=== PATIENT | female | born 1945 | race Caucasian/White ===

== ENCOUNTER 2019-11-26 11:46 | Outpatient (CLI) | payer MEDICARE, OTHER, SELFPAY ==
--- NOTE | ~2019-11-26 | MM_ITS ---
EXAMINATION: MM diagnostic [facility] BI w [facility] HISTORY: History of bilateral breast cancer TECHNIQUE: ML, MLO and cc 3-D tomosynthesis images of both breasts were performed and synthetic 2-D i mages were generated. CAD analysis was submitted and interpreted. COMPARISON: 08/05/2018 diagnostic right digital mammogram and limited right breast ultrasound 07/06/2018bilateral digital screening mammogram BREAST PARENCHYMAL COMPOSITION: The breasts are heterogeneously dense, which may obscure small masses . FINDINGS: There is postoperative change of both breasts including clips in the upper outer quadrants. There is a Port-A-Cath on the left. There is bilateral skin thickening; history of radiation treatme nt. No suspicious mass or architectural distortion is noted otherwise. IMPRESSION: 1. Status post bilateral partial mastectomy and radiation treatment for breast cancer 2. Routine mammographic screening and any additional imaging as clinically appropriate for bilateral breast cancer is recommended. BI-RADS Category 2: Benign finding(s). Reviewed, dictated and finalized at location A. CCO SWEEPER IMPRESSION: 1. Status post bilateral partial mastectomy and radiation treatment for breast cancer 2. Routine mammographic screening and any additional imaging as clinically appr opriate for bilateral breast cancer is recommended. BI-RADS Category 2: Benign finding(s).
== END 2019-11-26 11:47 | disposition home or self-care (01) ==
LOC: ANHIMG 11:48
PROVIDERS: PCP Internal Medicine; Visit Provider Internal Medicine Hematology & Oncology
DX: C50.411 Malignant neoplasm of upper-outer quadrant of right female breast (principal); Z17.0 Estrogen receptor positive status [ER+]; Z90.13 Acquired absence of bilateral breasts and nipples; Z92.3 Personal history of irradiation
CPT/HCPCS: 77062; 77066; G0279

== ENCOUNTER 2020-06-06 10:59 | Outpatient (CLI) | payer MEDICARE, OTHER, SELFPAY ==
--- NOTE | ~2020-06-06 | MM_ITS ---
EXAMINATION: MM diagnostic [facility] BI w [facility] HISTORY: Bilateral breast cancer, 2018, 2019 TECHNIQUE: ML, MLO and craniocaudal 3-D tomosynthesis images of both breasts were performed and synth etic 2-D images were generated. CAD analysis was submitted and interpreted. COMPARISON: 11/26/2019 bilateral diagnostic digital mammogram BREAST PARENCHYMAL COMPOSITION: The breasts are heterogeneously dense, which may obscure small masses . FINDINGS: Postsurgical changes from partial mastectomy are noted in the upper outer quadrant of each breast. The postoperative changes appear stable. There is a left-sided Port-A-Cath. No interval suspicious mass or new architectural distortion or any malignant calcification or retract ion is noted. Symmetric mild skin thickening is noted at both breasts. IMPRESSION: 1. Status post bilateral upper outer quadrant partial mastectomies for breast cancer 2. No interval new mammographic evidence of malignancy since 11/26/2019 3. At minimum, annual mammographic screening is recommended. BI-RADS Category 2: Benign finding(s). Reviewed, dictated and finalized at location A. IMPRESSION: 1. Status post bilateral upper outer quadrant partial mastectomies for breast c ancer 2. No interval new mammographic evidence of malignancy since 11/26/2019 3. At minimum, annual mammographic screening is recommended. BI-RADS Category 2: Benign finding(s).
== END 2020-06-06 11:00 | disposition home or self-care (01) ==
LOC: ANHIMG 11:00
PROVIDERS: PCP Internal Medicine; Visit Provider Internal Medicine Hematology & Oncology
DX: C50.411 Malignant neoplasm of upper-outer quadrant of right female breast (principal); Z17.0 Estrogen receptor positive status [ER+]
CPT/HCPCS: 77062; 77066; G0279

== ENCOUNTER → 2020-12-12 00:38 | Outpatient (CLI) | payer MEDICARE, OTHER, SELFPAY ==
[2020-12-12 17:47] LABS: SARS-CoV-2 RNA PCR Negative
== END ==
PROVIDERS: PCP Internal Medicine; Visit Provider Surgery
DX: Z01.812 Encounter for preprocedural laboratory examination (principal); Z20.822 Contact with and (suspected) exposure to COVID-19
CPT/HCPCS: C9803; U0003; U0005

== ENCOUNTER 2020-12-15 00:54 | Day surgery (SDC) | payer MEDICARE, OTHER, SELFPAY ==
[2020-12-10 09:12] VITALS: BMI 27.4
--- NOTE | 2020-12-15 07:29 | PM.HPGS ---
History of Present Illness History of Present Illness Chief complaint: Carcinoma Upper Outer Quad. 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 She presents this time to have her Port-A-Cath removed. Review of Systems Constitutional: Constitutional: Reports no additional constitutional complaints, Reports fatigue and Denies malaise Eyes: Eyes: Denies change in vision and Denies loss of vision ENT: Reports Normal hearing present, Denies change in voice, Denies dizziness, Denies hoarseness and Denies sore throat Cardiovascular: Cardiovascular: Denies chest pain, Denies leg edema and Denies dyspnea Respiratory: Respiratory: Denies cough, Denies dyspnea and Denies wheezing Gastrointestinal: Gastrointestinal: Denies hematochezia, Denies change in bowel habits and Denies heartburn Genitourinary: Genitourinary: Denies urinary frequency and Denies urinary incontinence Neurologic: Reports Normal hearing present, Denies confusion, Denies dizziness, Denies loss of vision, Denies memory loss and Denies seizure-like activity Psychiatric: Psychiatric: Denies confusion, Denies depression and Denies memory loss Endocrine: Endocrine: Denies cold intolerance and Reports fatigue Hematologic/Lymphatic: Hematologic/Lymphatic: Denies easy bleeding and Denies easy bruising Comments: States she has received 1 COVID immunization shot approximately 1 week ago. Allergic/Immunologic: Allergic/Immunologic: Denies wheezing PMF Family History Family History Mother Acute myocardial infarction, Onset Age: 88 Patient's mother is Father Family history of malignant neoplasm, Onset Age: 49 Social History Social History Smoking packs per day: 0.25 Smoking cigarettes per day: 5.0 Years smoked: 20 Smoking pack-years: 5.00 Smoking status: Former smoker Tobacco type: cigarettes Second hand tobacco smoke exposure: No Smoking end date: 10/17/01 Alcohol intake: current Living arrangements: alone Spiritual care concerns: No Meds Home Medications and Allergies Home Medications Medication Instructions Recorded Confirmed Type anastrozole 1 mg PO DAILY 08/01/19 12/15/20 History cetirizine 10 mg PO PRN PRN 08/01/19 12/15/20 History cholecalciferol (vitamin D3) 1,000 unit PO DAILY 08/23/19 12/15/20 History [Vitamin D3] vitamins A,C,Q-chkd-wzjrxj 1 cap PO DAILY 12/10/20 12/15/20 History [PreserVision AREDS] Allergies Allergy/AdvReac Type Severity Reaction Status Date / Time metronidazole Allergy Unknown Other Verified 12/15/20 08:45 vancomycin Allergy Unknown Swelling Verified 12/15/20 08:45 Exam Const: General: cooperative, healthy appearing, no acute distress, well developed and alert; No confusion Nutritional Appearance: well nourished Orientation/consciousness: patient oriented x3 and No confusion Limitations: no limitations HENMT: Head: normal to inspection, normocephalic and atraumatic Ears: hearing grossly normal bilaterally General nose exam: Normal external nose present Face and sinus: no edema Mouth: Yes Normal oral and palatal mucosa present and Yes lip normal Throat: posterior oropharynx normal Eyes: General: appearance normal, both eyes and all related structures Sclera: sclerae normal Pupils: Equal, round and reactive pupils present EOM: EOMs intact bilaterally Neck: Neck: normal visual inspection, no lymphadenopathy, trachea midline and supple Chest: Chest palpation & inspection: other (Palpable catheter extending from the port to the subclavicular area on Lt.) Breast/axilla inspection: normal inspection of the breasts Other: Small scar on the upper anterior left chest (overlying julieth
[2020-12-15 08:56] VITALS: BP 132/83; PULSE 69; RESP 16; TEMP 37.3; O2SAT 100
--- NOTE | 2020-12-15 09:48 | WPDHPUPDATE1 ---
History and Physical Update Update Date/Time: 12/15/20 09:48 History and Physical has been reviewed, including an updated exam of the patient. There are NO changes in the patient's condition. Risks, benefits, and alternatives of removal of a Port-A-Cath have been discussed and questions answered. Patient agrees to proceed with procedure.
[2020-12-15 09:56] VITALS: BP 146/72; PULSE 59; RESP 16; O2SAT 99
[2020-12-15 10:06] VITALS: BP 139/76; PULSE 62; RESP 16; O2SAT 98
[2020-12-15] MEDS: LIDO 2%/EPINEPHRINE 1:100,000 20 ML VIAL INFILTRATE (10:08)
[2020-12-15 10:16] VITALS: BP 128/74; PULSE 66; RESP 16; O2SAT 97
[2020-12-15 10:26] VITALS: BP 122/66; PULSE 66; RESP 16; O2SAT 96
--- NOTE | 2020-12-15 10:39 | P.OP_ITS ---
Procedure Note - Detailed Date of procedure: 12/15/20 Pre-op diagnosis: Carcinoma Upper Outer Quad. Right Breast Indwelling Port-A-Cath Post-op diagnosis: same Procedure performed: Removal of Port-A-Cath Description of procedure: Prior to the procedure the patient was seen in the holding area and the area of proposed surgery was marked. All questions were answered and the patient wished to proceed with removal of the Port-A-Cath. The patient was brought to the operating room and placed supine. The entire left neck, chest, and shoulder were prepped with chlorhexidine. The area was draped off. Time-out was performed confirming patient and site of surgery. Following this a 15 blade knife was used to make incision directly on the scar from the previous port placement. This was done after infiltrating local anesthetic into the area of and inferior to the scar on the left anterior chest and into the area of the pocket containing the port to some degree using 2% xylocaine with epinephrine. Following this we carefully dissected down to the junction of the port and catheter. Bovie cautery with needle-tip was used to carefully incise the capsule around the port and free up the scar tissue around the junction of the port and catheter. One silk suture that was holding the port to the underlying fascia was carefully excised with a 15 blade knife and mosquito hemostats. Following this the port was brought up and out of the pocket. Then watching the patient's respirations I carefully removed the catheter in one smooth pull while applying pressure in the Lt. subclavicular area at the catheter vein exit site as the patient was breathing out. Pressure was held for 1 minute in the subclavicular level. I used Bovie cautery on some the subcutaneous tissues as we waited for good clotting. Again hemostasis was checked in the wound using Bovie cautery for superficial hemostasis in the subcutaneous tissues. Following this closure was obtained with 2 layers. I used buried subcutaneous sutures of 3-0 Vicryl in the subcutaneous layer followed by a running subcuticular closure of 4-0 Monocryl on the skin. Patient tolerated the procedure well. Estimated blood loss was 3 cc. Sponge, needle, and instrument counts were correct at the end the procedure and patient was taken to the outpatient recovery area in good condition. Anesthesia: local ( 2% xylocaine with epinephrine) Surgeon: Sudheer Reynolds MD House Worker General: none Estimated blood loss (mL): 3 Drains: No Packing: No Pathology: none sent Complications: No immediate complications Condition: stable Disposition: other ( outpatient recovery area) Findings: unremarkable port and catheter that were intact.
[2020-12-15 11:00] VITALS: BP 140/65; PULSE 59; RESP 16
== END 2020-12-15 11:05 | disposition home or self-care (01) ==
PROVIDERS: PCP Internal Medicine; Visit Provider Surgery
PROC: (CPT 36589; principal; 2020-12-15 09:30)
DX: Z45.2 Encounter for adjustment and management of vascular access device (principal); Z85.3 Personal history of malignant neoplasm of breast; Z87.891 Personal history of nicotine dependence; Z79.811 Long term (current) use of aromatase inhibitors
CPT/HCPCS: 36590

== ENCOUNTER 2021-06-08 11:09 | Outpatient (CLI) | payer MEDICARE, OTHER, SELFPAY ==
--- NOTE | ~2021-06-08 | MM_ITS ---
EXAMINATION: MM diagnostic [facility] BI w [facility] HISTORY: History of bilateral breast cancer TECHNIQUE: Craniocaudal, mediolateral, and mediolateral oblique 3-D tomosynthesis images of the breas ts were performed and synthetic 2-D images were generated. CAD analysis was submitted and interpreted . COMPARISON: 06/06/2020, 11/26/2019, 08/05/2018, 07/14/2018 BREAST PARENCHYMAL COMPOSITION: The breasts are heterogeneously dense, which may obscure small masses . FINDINGS: There is no evidence of suspicious mass, calcification, or architectural distortion in eith er breast to suggest malignancy. There has been no suspicious interval change. Stable lumpectomy maria del carmen nges are noted in the upper outer quadrants of the breasts. A left-sided Port-A-Cath has been. IMPRESSION: 1. No mammographic evidence of malignancy. 2. Recommend routine screening mammography in one year. BI-RADS Category 2: Benign finding(s). Reviewed, dictated and finalized at location A.
== END 2021-06-08 11:10 | disposition home or self-care (01) ==
LOC: ANHIMG 11:10
PROVIDERS: PCP Internal Medicine; Visit Provider Internal Medicine Hematology & Oncology
DX: Z85.3 Personal history of malignant neoplasm of breast (principal)
CPT/HCPCS: 77062; 77066; G0279

== ENCOUNTER 2022-01-28 08:00 | Outpatient (CLI) | payer MEDICARE, SELFPAY ==
--- NOTE | ~2022-01-28 | DEXA_ITS ---
Bone Density Report Name: RUFINA CRUZ Age: 76 Sex: Female Ethnicity: White Date of : 1945 Indication: postmenopausal; screening for osteoporosis; cancer; hysterectomy; Referring Provider: BRITT DUQUE Study: Bone densitometry was performed. Exam Date: January 28, 2022 Accession number: [id number] Bone Density: Region BMD T-score Z-score Classification AP Spine(L1, L2) 1.110 1.2 3.6 Normal Femoral Neck (Left) 0.749 -0.9 1.3 Normal Total Hip (Left) 0.862 -0.7 1.2 Normal Femoral Neck (Right) 0.715 -1.2 1.0 Osteopenia Total Hip (Right) 0.844 -0.8 1.1 Normal Total Hip Mean 0.853 -0.8 1.2 Normal World Health Organization criteria for BMD impression classify patients as: Normal (T-score at or above -1.0), Osteopenia (T-score between -1.0 and -2.5), or Osteoporosis (T-score at or below -2.5). 10-year Fracture Risk(1): Major Osteoporotic Fracture 11% Hip Fracture 2.1% Reported Risk Factors: [place] (), Neck BMD=0.715, BMI=27.9 (1) FRAX(R) Version 3.08. Fracture probability calculated for an untreated patient. Fracture probability may be lower if the patient has received treatment. Previous Exams: Region Exam Age BMD T-score BMD Change BMD Change Date g/cm2 vs Baseline vs Previous AP Spine(L1, L2) 01/28/2022 76 1.110 1.2 0.039(3.7%)# 0.062(5.9%)* 09/29/2019 73 1.048 0.6 -0.023(-2.1%)# -0.023(-2.1%)# 09/20/2011 65 1.071 0.8 Total Hip(Left) 01/28/2022 76 0.862 -0.7 -0.026(-2.9%)# 0.012(1.4%) 09/29/2019 73 0.850 -0.8 -0.037(-4.2%)# -0.037(-4.2%)# 09/20/2011 65 0.888 -0.4 Total Hip(Right) 01/28/2022 76 0.844 -0.8 -0.047(-5.2%)# 0.018(2.2%) 09/29/2019 73 0.826 -1.0 -0.065(-7.3%)# -0.065(-7.3%)# 09/20/2011 65 0.891 -0.4 *Denotes significance at 95% confidence level, LSC for AP Spine = 0.022 g/cm2, LSC for Total Hip = 0.027 g/cm2 # Denotes dissimilar scan types or analysis methods Clinical Information Provided by Patient: Has used the following medications: Vitamin D, Calcium Has the following medical conditions: Cancer, Hysterectomy Patient maximum height was 64 Menopause Age: 54 No regular weight bearing exercise Drinks caffeinated beverages Onset of menses at age 13 Number of children 2 Impression: The patient has low bone mass, based on the Right Femoral Neck T-score. The patient has an estimated ten-year risk of hip fracture of 2.1%
--- NOTE | ~2022-01-28 | DEXA_ITS ---
Bone Density Report Name: RUFINA CRUZ Age: 76 Sex: Female Ethnicity: White Date of : 1945 Indication: UNAPPROVED postmenopausal; screening for osteoporosis; Referring Provider: BRITT DUQUE Study: Bone densitometry was performed. Exam Date: January 28, 2022 Accession number: [id number] Bone Density: Region BMD T-score Z-score Classification AP Spine(L1, L2) 1.110 1.2 3.6 Normal Femoral Neck (Left) 0.749 -0.9 1.3 Normal Total Hip (Left) 0.862 -0.7 1.2 Normal Femoral Neck (Right) 0.715 -1.2 1.0 Osteopenia Total Hip (Right) 0.844 -0.8 1.1 Normal Total Hip Mean 0.853 -0.8 1.2 Normal World Health Organization criteria for BMD impression classify patients as: Normal (T-score at or above -1.0), Osteopenia (T-score between -1.0 and -2.5), or Osteoporosis (T-score at or below -2.5). 10-year Fracture Risk(1): Major Osteoporotic Fracture 11% Hip Fracture 2.1% Reported Risk Factors: [place] (), Neck BMD=0.715, BMI=27.9 (1) FRAX(R) Version 3.08. Fracture probability calculated for an untreated patient. Fracture probability may be lower if the patient has received treatment. Impression: UNAPPROVED The patient has low bone mass, based on the Right Femoral Neck T-score. The patient has an estimated ten-year risk of hip fracture of 2.1% and an estimated ten-year risk of major fracture of 11%, based on the WHO FRAX algorithm. Discussion: UNAPPROVED BONE DENSITY IS LOW AT ONE OR MORE SKELETAL SITES. This patient's lowest T-score is low at one or more skeletal sites. It meets the World Health Organization's (WHO) criteria for ?low bone mass? (T-score between -1.0 and -2.5). The patient's 10-year risk of fracture as calculated by FRAX is less than the threshold where pharmacological therapy is recommended by the National Osteoporosis Foundation (NOF). However, all treatment decisions require clinical judgment and consideration of individual patient factors, including patient preferences, comorbidities, previous drug use, risk factors not captured in the FRAX model (e.g., frailty, falls, vitamin D deficiency, increased bone turnover, interval significant decline in bone density) and possible under or overestimation of fracture risk by FRAX. The patient should follow a healthful lifestyle (good nutrition with adequate calcium and vitamin D, and appropriate weight-bearing exercise). Follow-Up: UNAPPROVED Consider repeating this study in 2 to 3 years to reassess this patient's status, or sooner if there is some new clinical indication. Reported by: KAYODE on 01/28/2022 12:20:00 PM. Reviewed, dictated and finalized at location A.
== END 2022-01-28 08:01 | disposition home or self-care (01) ==
LOC: ANHIMG 08:01
PROVIDERS: PCP Internal Medicine; Visit Provider Internal Medicine Hematology & Oncology
DX: Z78.0 Asymptomatic menopausal state (principal); M85.851 Other specified disorders of bone density and structure, right thigh
CPT/HCPCS: 77080

== ENCOUNTER 2022-06-08 10:25 | Outpatient (CLI) | payer MEDICARE, SELFPAY ==
--- NOTE | ~2022-06-08 | MM_ITS ---
EXAMINATION: MM screening [facility] BI w armando HISTORY: Screening TECHNIQUE: Craniocaudal and mediolateral oblique 3-D tomosynthesis images were obtained and synthetic 2-D images were generated. CAD analysis was submitted and interpreted. COMPARISON: Comparison to multiple prior studies sequentially, with oldest reviewed study dated 07/17. BREAST PARENCHYMAL COMPOSITION: There are scattered areas of fibroglandular density. FINDINGS: There are changes in both breasts consistent with previous lumpectomy and breast reduction surgery. There is no evidence of suspicious mass, calcification, or architectural distortion to sugge st malignancy in either breast. There has been no suspicious interval change. IMPRESSION: 1. No mammographic evidence of malignancy. 2. Recommend routine screening mammography in one year. BI-RADS Category 2: Benign finding(s). Reviewed, dictated and finalized at location A.
== END 2022-06-08 10:26 | disposition home or self-care (01) ==
LOC: ANHIMG 10:29
PROVIDERS: PCP Internal Medicine; Visit Provider Internal Medicine Hematology & Oncology
DX: Z12.31 Encounter for screening mammogram for malignant neoplasm of breast (principal)
CPT/HCPCS: 77063; 77067

== ENCOUNTER 2022-06-25 10:40 | Outpatient (CLI) | payer MEDICARE, SELFPAY ==
[2022-06-25 13:16] LABS: Cholesterol 265 mg/dL (0-200); HDL Direct 70 mg/dL; Iron 124 ug/dL (37-170); Triglycerides 121 mg/dL (<150)
[2022-06-25 13:29] LABS: LDL Cholesterol Direct 131 mg/dL
[2022-06-25 13:33] LABS: Percent Iron Saturation 39 % (20-50)
[2022-06-25 14:22] LABS: Hemoglobin A1C 5.3 % (<5.7)
[2022-06-25 14:29] LABS: Folic Acid > 20.0 ng/mL (2.76->20)
== END 2022-06-25 10:41 | disposition home or self-care (01) ==
LOC: ANHLAB 10:44
PROVIDERS: PCP Internal Medicine; Visit Provider Internal Medicine
DX: R73.9 Hyperglycemia, unspecified (principal); D64.9 Anemia, unspecified; R53.83 Other fatigue; E78.5 Hyperlipidemia, unspecified
CPT/HCPCS: 36415; 80061; 82607; 82746; 83036; 83540; 83550; 84443

== ENCOUNTER 2023-01-14 08:37 | Outpatient (CLI) | payer MEDICARE, SELFPAY ==
[2023-01-14 09:05] LABS: Basophils Percent Auto 0.6 % (0.2-1.2); Eosinophils Absolute Auto 0.1 K/mm3 (0-0.3); Eosinophils Percent Auto 2.7 % (0-4.4); Hematocrit 38.2 % (37.0-47.0); Hemoglobin 12.4 g/dL (12.0-15.0); Immature Granulocyte Absolute 0.01 K/mm3 (0.00-0.031); Immature Granulocyte Percent A 0.2 % (0-0.5); Lymphocytes Absolute Auto 1.84 K/mm3 (0.9-3.2); Mean Corpuscular HGB Conc 32.5 g/dl (32-36); Mean Corpuscular Hemoglobin 31.7 pg (26-34); Mean Corpuscular Volume 97.7 fl (80-100); Mean Platelet Volume 9.6 fl (7.4-10.4); Monocytes Absolute Auto 0.5 K/mm3 (0.1-0.6); Monocytes Percent Auto 9.5 % (2.6-8.5); Neutrophils Absolute Auto 2.7 K/mm3 (1.3-6.7); Platelet Count Result 260 k/mm3 (150-375); Red Blood Count 3.91 M/mm3 (4.2-5.4); Red Cell Distribution Width 11.8 % (11.5-14.5); White Blood Count 5.3 K/mm3 (4.5-10.0)
[2023-01-14 14:40] LABS: Alanine Aminotransferase 36 U/L (6-35); Albumin Level 4.4 g/dL (3.5-5.1); Alkaline Phosphatase 108 U/L (38-126); Anion Gap 8 mmol/L (8-16); Aspartate Amino Transferase 38 U/L (14-36); Bilirubin,Total 0.6 mg/dL (0.2-1.3); Blood Urea Nitrogen 19 mg/dL (7-17); Calcium 9.1 mg/dL (8.4-10.2); Carbon Dioxide 30 mmol/L (22-30); Chloride 103 mmol/L (98-107); Cholesterol 164 mg/dL (0-200); Estimated Glomerular Filt Rate 48; Glucose 103 mg/dL (65-110); HDL Direct 68 mg/dL; Potassium 4.3 mmol/L (3.4-5.0); Sodium 141 mmol/L (137-145); Triglycerides 102 mg/dL (<150)
[2023-01-14 14:46] LABS: Hemoglobin A1C 5.4 % (<5.7)
[2023-01-14 15:12] LABS: LDL Cholesterol Direct 71 mg/dL
[2023-01-18 12:20] LABS: CA 15-3 17 U/mL (<32)
== END 2023-01-14 08:38 | disposition home or self-care (01) ==
LOC: ANHLAB 08:40
PROVIDERS: PCP Internal Medicine; Visit Provider Internal Medicine Hematology & Oncology
DX: C50.411 Malignant neoplasm of upper-outer quadrant of right female breast (principal); Z17.0 Estrogen receptor positive status [ER+]
CPT/HCPCS: 36415; 80053; 80061; 83036; 85025; 86300

== ENCOUNTER 2023-06-09 10:18 | Outpatient (CLI) | payer MEDICARE, SELFPAY ==
--- NOTE | ~2023-06-09 | MM_ITS ---
EXAMINATION: MM screening [facility] BI w armando HISTORY: Screening mammogram; history of bilateral breast malignancies, bilateral partial mastectomie s TECHNIQUE: Craniocaudal and mediolateral oblique 3-D tomosynthesis images were obtained and synthetic 2-D images were generated. CAD analysis was submitted and interpreted. COMPARISON: 06/08/2022 bilateral screening mammogram 06/08/2021 diagnostic bilateral mammogram BREAST PARENCHYMAL COMPOSITION: The breasts are heterogeneously dense, which may obscure small masses . FINDINGS: Postoperative changes from bilateral partial mastectomy are again noted, as well is some ch ronic skin thickening of both breasts. There is no evidence of suspicious mass, calcification, or arc hitectural distortion to suggest malignancy in either breast. There has been no suspicious interval c hange. IMPRESSION: 1. No status post bilateral partial mastectomies for breast cancer. Mammographic evidence of malignan cy. 2. Recommend routine screening mammography in one year. BI-RADS Category 2: Benign finding(s). Reviewed, dictated and finalized at location A. IMPRESSION: 1. No status post bilateral partial mastectomies for breast cancer. Mammographi c evidence of malignancy. 2. Recommend routine screening mammography in one year. BI-RADS Category 2: Benign finding(s).
== END 2023-06-09 10:19 | disposition home or self-care (01) ==
PROVIDERS: PCP Internal Medicine; Visit Provider Internal Medicine Hematology & Oncology
DX: Z12.31 Encounter for screening mammogram for malignant neoplasm of breast (principal)
CPT/HCPCS: 77063; 77067

== ENCOUNTER 2024-07-05 08:38 | Outpatient (CLI) | payer OTHER, SELFPAY ==
--- NOTE | ~2024-07-05 | DEXA_ITS ---
Bone Density Report Name: RUFINA CRUZ Age: 78 Sex: Female Ethnicity: White Date of : 1945 Indication: postmenopausal; screening for osteoporosis; history of glucocorticoids; cancer; hysterectomy; Referring Provider: BRITT DUQUE Study: Bone densitometry was performed. Exam Date: July 05, 2024 Accession number: [id number] Bone Density: Region BMD T-score Z-score Classification AP Spine(L1, L2) 1.121 1.3 3.8 Normal Femoral Neck (Left) 0.726 -1.1 1.2 Osteopenia Total Hip (Left) 0.854 -0.7 1.3 Normal Femoral Neck (Right) 0.729 -1.1 1.2 Osteopenia Total Hip (Right) 0.853 -0.7 1.3 Normal Total Hip Mean 0.853 -0.7 1.3 Normal World Health Organization criteria for BMD impression classify patients as: Normal (T-score at or above -1.0), Osteopenia (T-score between -1.0 and -2.5), or Osteoporosis (T-score at or below -2.5). 10-year Fracture Risk(1): Major Osteoporotic Fracture 18% Hip Fracture 4.1% Reported Risk Factors: [place] (), Neck BMD=0.726, BMI=27.0, glucocorticoids (1) FRAX(R) Version 3.08. Fracture probability calculated for an untreated patient. Fracture probability may be lower if the patient has received treatment. Previous Exams: Region Exam Age BMD T-score BMD Change BMD Change Date g/cm2 vs Baseline vs Previous AP Spine (L1-L2) 07/05/2024 78 1.121 1.3 0.050 (4.7%)# 0.011 (1.0%) 01/28/2022 76 1.110 1.2 0.039 (3.7%)# 0.062 (5.9%)* 09/29/2019 73 1.048 0.6 -0.023 (-2.1%) -0.023 (-2.1%) 09/20/2011 65 1.071 0.8 Total Hip(Left) 07/05/2024 78 0.854 -0.7 -0.034 (-3.8%) -0.008 (-1.0%) 01/28/2022 76 0.862 -0.7 -0.026 (-2.9%) 0.012 (1.4%) 09/29/2019 73 0.850 -0.8 -0.037 (-4.2%) -0.037 (-4.2%) 09/20/2011 65 0.888 -0.4 Total Hip(Right) 07/05/2024 78 0.853 -0.7 -0.038 (-4.2%) 0.009 (1.1%) 01/28/2022 76 0.844 -0.8 -0.047 (-5.2%) 0.018 (2.2%) 09/29/2019 73 0.826 -1.0 -0.065 (-7.3%) -0.065 (-7.3%) 09/20/2011 65 0.891 -0.4 *Denotes significance at 95% confidence level, LSC for AP Spine = 0.022 g/cm2, LSC for Total Hip = 0.027 g/cm2 # Denotes dissimilar scan types or analysis methods Clinical Information Provided by Patient: Has taken Glucocorticoids Has used the following medications: Vitamin D, Calcium Has the following medical conditions: Cancer, Hysterectomy Patient maximum height was 64 Menopause Age: 54 No regular weight bearing exercise Drinks caffeinated beverages
--- NOTE | ~2024-07-05 | MM_ITS ---
EXAMINATION: MM screening [facility] BI w armando HISTORY: Screening mammogram TECHNIQUE: Craniocaudal and mediolateral oblique 3-D tomosynthesis images were obtained and synthetic 2-D images were generated. CAD analysis was submitted and interpreted. COMPARISON: 06/09/2023, 06/08/2022, 06/08/2021, 06/06/2020 BREAST PARENCHYMAL COMPOSITION:Dense: The breasts are heterogeneously dense, which may obscure small masses. FINDINGS: Stable postoperative changes at the upper, outer quadrants bilaterally. No suspicious mass, calcification, or architectural distortion are identified in either breast to suggest malignancy. Th ere has been no suspicious interval change. IMPRESSION: No mammographic evidence of malignancy. Recommend routine screening mammography in one year. BI-RADS Category 2: Benign finding(s). Reviewed, dictated and finalized at location .
== END 2024-07-05 08:39 | disposition home or self-care (01) ==
LOC: ANHIMG 08:40
PROVIDERS: PCP Internal Medicine; Visit Provider Internal Medicine Hematology & Oncology
DX: Z12.31 Encounter for screening mammogram for malignant neoplasm of breast (principal); M85.89 Other specified disorders of bone density and structure, multiple sites; M85.852 Other specified disorders of bone density and structure, left thigh; M85.851 Other specified disorders of bone density and structure, right thigh
CPT/HCPCS: 77063; 77067; 77080

== ENCOUNTER 2024-07-09 08:34 | Outpatient (CLI) | payer MEDICARE, SELFPAY ==
[2024-07-09 11:28] LABS: Cholesterol 182 mg/dL (0-200); HDL Direct 75 mg/dL; Triglycerides 75 mg/dL (<150)
[2024-07-09 11:40] LABS: LDL Cholesterol Direct 80 mg/dL
[2024-07-09 12:34] LABS: Folic Acid 10.2 ng/mL (2.76->20)
== END 2024-07-09 08:35 | disposition home or self-care (01) ==
LOC: ANHLAB 08:38
PROVIDERS: PCP Internal Medicine; Visit Provider Nurse Practitioner
DX: E78.5 Hyperlipidemia, unspecified (principal); R53.83 Other fatigue
CPT/HCPCS: 36415; 80053; 80061; 82607; 82746; 84443; 85025; 86300

== ENCOUNTER 2025-01-08 08:09 | Outpatient (CLI) | payer MEDICARE, SELFPAY ==
--- OUTSIDE RECORDS SUMMARY | 2025-01-08 08:26 | XMS_ITS | Encounter Summary ---
Author Organization [facility] Address [address] [place] [address] Care Team Providers Care Credit Specialist Name Role Phone Tyree Ascencio DO Primary Care Provider [phone] Encounter Details Date Type Department Care Team (Late st Contact Info) Description 04/03/2019 Chart Note [facility] Radiation Therapy [address] [place] [address] [place] [address] [place] [address] Social History Tobacco Use Types Packs/Day Years Used Date Smoking Tobacco: Former Cigarettes 0.5 30 0 03/17/1968 - 03/17/1998 Smokeless Tobacco: Never Alcohol Use Standard Drinks/Week Comments Yes 0 (1 standard drink = 0.6 oz pur e alcohol) Comments No Sex and Gender Information Value Date Recorded Sex Assigned at Not on file Legal Sex Female 9:31 AM CDT Gender Identity Not on file Sexual Orientation Not on file documented as of this encounter Plan of Treatment Upcoming Encounters Date Type Department Care Team (Late st Contact Info) Description 01/14/2025 11:00 AM CDT Office Visit [facility] Oncology and Hematology - [place] [address] [facility] [address] [place] [address] Eber Hooper MD [address] [facility] [address] [place] [address] documented as of this encounter Visit Diagnoses Not on filedocumented in this encounter Care Teams Credit Specialist Relationship Specialty Start Date End Date Tyree Ascencio DO [id number] [facility] [address] [facility] [address] [place] [address] PCP - General Internal Medicine 07/27/18 documented as of this encounter
--- OUTSIDE RECORDS SUMMARY | 2025-01-08 08:26 | XMS_ITS | Clinical Summary ---
Author Organization [facility] Address [address] [facility] [place] [address] Care Team Providers Care Watch Repair Person Name Role Phone Tyree Ascencio DO Primary Care Provider [phone] Source Comments [facility],non-owned Affiliates and Associated Physician Practices is amultiple site organization consisting of ambulatory clinics and hospital sitesin [place], [place], [place] and [place]. This disclosure is being madepursuant to the Care Everywhere program and may not contain all information available regarding this patient. Last updated 18.[facility] Social History Tobacco Use Types Packs/Day Years Used Date Smoking Tobacco: Never Assessed Sex and Gender Information Value Date Recorded Sex Assigned at Not on file Gender Identity Not on file Sexual Orientation Not on file Plan of Treatment Health Maintenance Due Date Last Done Comments BONE DENSITY TESTING 1945 MEDICARE AWV 12 MONTHS 1945 DTAP/TDAP/TD VACCINES (1 - Tdap) 1963 PNEUMOCOCCAL VACCINE 50+ (1 of 1 - PCV) 1994 ZOSTER VACCINE (1 of 2) 1994 Respiratory Syncytial Virus (RSV) Vaccine Pt: or over 60 yrs (1 - 1-dose 75+ series) 2019 COVID-19 VACCINE ( - 2023-2 5 season) 2024 INFLUENZA VACCINE (#1) 2024 DEPRESSION SCREENING 10/17/2024 HEPATITIS B VACCINE Aged Out No longe r eligible based on patient's age to complete this topic HIB VACCINE Aged Out No longer eligi ble based on patient's age to complete this topic HPV VACCINE Aged Out No longer eligi ble based on patient's age to complete this topic MENINGOCOCCAL (Group B) VACC INE SHARED DECISION-MAKING Aged Out No longer eligibl e based on patient's age to complete this topic MENINGOCOCCAL GROUPS A/C/Y/W VACCINE Aged Out No longer eligible b ased on patient's age to complete this topic Care Teams Watch Repair Person Relationship Specialty Start Date End Date Tyree Ascencio DO [address] [facility] [address] [place] [address] PCP - General Internal Medicine 08/09/18
--- OUTSIDE RECORDS SUMMARY | 2025-01-08 08:26 | XMS_ITS | Clinical Summary ---
Author Organization [facility] Address [address] [place] [address] Care Team Providers Care Research Manager Name Role Phone SonuMehdiTyree DO Primary Care Provider [phone] Allergies Active Allergy Reactions Criticality Noted Date Comments Chlorhexidine Rash Low 09/12/2018 Propofol Nausea and Vomiting Low 08/24/2018 Medications atorvastatin (LIPITOR) 20 mg tablet 11/19/2022 Active CALCIUM CARBONATE-VITAMI N D3 ORAL Take by mouth. Active anastrozole (ARIMIDEX) 1 mg tablet Take 1 Tablet (1 mg) by mouth daily. 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, estrogen receptor positive 08/08/2018 Resolved Problems Problem Noted Date Diagnosed Date Resolved Date Abnormal magnetic resonance imaging of left breast 08/24/2018 03/06/2020 Abnormal magnetic resonance imaging of right breast 08/24/2018 08/24/2018 Abnormal ultrasound of breast 08/01/2018 03/06/2020 Abnormal mammogram of right breast 08/01/2018 03/06/2020 Lump in upper outer quadrant of right breast 8 03/06/2020 Encounters Date Type Department Care Team Description 01/02/2025 External Device Data STL ABSTRACTION Provider, Abstract 01/02/2025 External Device Data STL ABSTRACTION Provider, Abstract 12/22/2024 External Device Data STL ABSTRACTION Provider, Abstract 12/21/2024 External Device Data STL ABSTRACTION Provider, Abstract 12/04/2024 External Device Data STL ABSTRACTION Provider, Abstract 11/08/2024 External Device Data STL ABSTRACTION Provider, Abstract 10/15/[address] [address] Wenceslao Gloria PA-C 10/11/[address] [address] Wenceslao Gloria PA-C from Last 3 Months Family History Medical History Relation Name Comments Cancer Father 49 - [employer] [facility] Cancer Maternal Grandmother stomach - Relation Name Status Comments Father Maternal Grandmother Social History Tobacco Use Types Packs/Day Years Used Date Smoking Tobacco: Former Cigarettes 0.5 30 0 03/17/1968 - 03/17/1998 Smokeless Tobacco: Never Tobacco Cessation:Counseling Given: Not Answered Alcohol Use Standard Drinks/Week Comments Yes 0 (1 standard drink = 0.6 oz pur e alcohol) Comments No Sex and Gender Information Value Date Recorded Sex Assigned at Not on file Legal Sex Female 9:31 AM CDT Gender Identity Not on file Sexual Orientation Not on file Last Filed Vital Signs Vital Sign Reading Time Taken Comments Blood Pressure 171/98 07/11/2024 9:48 AM CDT Pulse 67 07/11/2024 9:45 AM CDT Temperature 36.1 C (96.9 F) 07/11/2024 9:45 AM CDT Respiratory Rate 14 07/11/2024 9:45 AM CDT Oxygen Saturation 96% 07/11/2024 9:45 AM CDT Inhaled Oxygen Concentration - - Weight 69.5 kg (153 lb 3.2 oz) 07/11/2024 9:45 A M CDT Height 162.6 cm (5' 4 ) 11/30/2021 11:26 AM OUTSIDE MACHINIST Body Mass Index 26.3 11/30/2021 11:26 AM OUTSIDE MACHINIST Plan of Treatment Upcoming Encounters Date Type Department Care Team (Late st Contact Info) Description 01/14/2025 11:00 AM CDT Office Visit [facility] Oncology and Hematology - Mukesh [address] [facility] [address] [place] [address] Eber Hooper MD [address] [facility] [address] [place] [address] Health Maintenance Due Date Last Done Comments DTAP/TDAP/TD VACCINES (1 - Tdap) 1963 PNEUMOCOCCAL VACCINE 50+ YEA RS (1 of 1 - PCV) 1994 ZOSTER VACCINE (1 of 2) 1994 RSV VACCINE (60+ or ) (1 - 1-dose 75+ series) 2019 INFLUENZA VACCINE (#1) 2024 Preventative Visit- Commercial 10/17/2024 OSTEOPOROSIS SCREENING Completed 2, 09/29/2019, 09/29/2019 Procedures Procedure Name Priority Date/Time Associated Diagnosis Comments XR DEXA BONE DENSITY AXIAL 1 OR MORE SITES Routine 09/29/2019 Osteoporosis, unspecified osteoporosis type, unspecified pathological fracture presence from Last 3 Months or Most Recently Relevant to Health Maintenance Results * XR DEXA BONE DENSITY AXIAL 1 OR MORE SITES (09/29/2019) Anatomical Region Laterality Modality Other Eber Hooper MD DIAGNOSTIC IMAGING ORDERABLES F inal Result from Last 3 Months or Most Recently Relevant to Health Maintenance Insurance [employer] PPO [id number] [employer] PPO [id number] [facility] [id number] Care Teams Research Manager Relationship Specialty Start Date End Date Tyree Ascencio DO [address] [facility] [address] [place] [address] PCP - General Internal Medicine 07/27/18
[2025-01-08 08:34] LABS: Basophils Absolute Auto 0.1 K/mm3 (0.0-0.1); Eosinophils Absolute Auto 0.2 K/mm3 (0-0.3); Eosinophils Percent Auto 3.8 % (0-4.4); Hematocrit 39.6 % (37.0-47.0); Hemoglobin 13.2 g/dL (12.0-15.0); Immature Granulocyte Absolute 0.01 K/mm3 (0.00-0.031); Immature Granulocyte Percent A 0.2 % (0-0.5); Lymphocytes Percent Auto 33.7 % (18.3-44.2); Mean Corpuscular HGB Conc 33.3 g/dl (32-36); Mean Corpuscular Hemoglobin 32.4 pg (26-34); Mean Corpuscular Volume 97.3 fl (80-100); Mean Platelet Volume 10.2 fl (7.4-10.4); Monocytes Absolute Auto 0.6 K/mm3 (0.1-0.6); Monocytes Percent Auto 12.1 % (2.6-8.5); Neutrophils Absolute Auto 2.5 K/mm3 (1.3-6.7); Neutrophils Percent Auto 49.2 % (45.5-73.1); Platelet Count Result 261 k/mm3 (150-375); Red Blood Count 4.07 M/mm3 (4.2-5.4); Red Cell Distribution Width 11.9 % (11.5-14.5); White Blood Count 5.1 K/mm3 (4.5-10.0)
[2025-01-08 10:42] LABS: Alanine Aminotransferase 25 U/L (6-35); Albumin Level 4.5 g/dL (3.5-5.1); Alkaline Phosphatase 76 U/L (38-126); Anion Gap 11 mmol/L (4-12); Aspartate Amino Transferase 35 U/L (14-36); Bilirubin,Total 0.8 mg/dL (0.2-1.3); Blood Urea Nitrogen 21 mg/dL (7-17); Calcium 9.8 mg/dL (8.4-10.2); Carbon Dioxide 28 mmol/L (22-30); Chloride 104 mmol/L (98-107); Estimated Glomerular Filt Rate 45; Glucose 89 mg/dL (65-110); Potassium 3.9 mmol/L (3.4-5.0); Sodium 143 mmol/L (137-145)
[2025-01-09 11:28] LABS: CA 15-3 15 U/mL (<32)
== END 2025-01-08 08:10 | disposition home or self-care (01) ==
LOC: ANHLAB 08:10
PROVIDERS: PCP Nurse Practitioner; Visit Provider Internal Medicine Hematology & Oncology
DX: C50.411 Malignant neoplasm of upper-outer quadrant of right female breast (principal); Z17.0 Estrogen receptor positive status [ER+]
CPT/HCPCS: 36415; 80053; 85025; 86300

== ENCOUNTER 2025-04-26 09:12 | Outpatient (CLI) | payer MEDICARE, SELFPAY ==
--- OUTSIDE RECORDS SUMMARY | 2025-04-26 09:15 | XMS_ITS | Clinical Summary ---
Author Organization [facility] Address [address] [place] [address] Care Team Providers Care Wireless Store Manager Name Role Phone Tyree Ascencio DO Primary Care Provider Source Comments [facility],non-owned Affiliates and Associated Physician Practices is amultiple site organization consisting of ambulatory clinics and hospital sitesin [place], [place], [place] and [place]. This disclosure is being madepursuant to the Care Everywhere program and may not contain all information available regarding this patient. Last updated 18.[facility] Social History Tobacco Use Types Packs/Day Years Used Date Smoking Tobacco: Never Assessed Comments Unknown Sex and Gender Information Value Date Recorded Sex Assigned at Not on file Legal Sex Female 3:06 PM CDT Gender Identity Not on file Sexual Orientation Not on file Plan of Treatment Health Maintenance Due Date Last Done Comments BONE DENSITY TESTING 1944 DTAP/TDAP/TD VACCINES (1 - Tdap) 1963 PNEUMOCOCCAL VACCINE 50+ (1 of 1 - PCV) 1994 ZOSTER VACCINE (1 of 2) 1994 Respiratory Syncytial Virus (RSV) Vaccine Pt: or over 60 yrs (1 - 1-dose 75+ series) 2019 COVID-19 VACCINE ( - 2023-2 5 season) 2024 DEPRESSION SCREENING 10/17/2024 INFLUENZA VACCINE (#1) 2025 HEPATITIS B VACCINE Aged Out No longe [...] on patient's age to complete this topic Insurance [place] [address] Care Teams Wireless Store Manager Relationship Specialty Start Date End Date Tyree Ascencio DO [address] [facility] [address] [place] [address] PCP - General Internal Medicine 08/09/18
--- OUTSIDE RECORDS SUMMARY | 2025-04-26 09:15 | XMS_ITS | Clinical Summary ---
Author Organization [facility] Address [address] [place] [address] Care Team Providers Care Power Plant Operators Supervisor Name Role Phone Frances Richard Sorensen DO Primary Care Provider Allergies Active Allergy Reactions Criticality Noted Date [...] Encounters Date Type Department Care Team Description 04/09/2025 External Device Data STL ABSTRACTION Provider, Abstract 03/19/2025 External Device Data STL ABSTRACTION Provider, Abstract 03/12/2025 External Device Data STL ABSTRACTION Provider, Abstract 03/07/2025 External Device Data STL ABSTRACTION Provider, Abstract 03/05/2025 External Device Data STL ABSTRACTION Provider, Abstract from Last 3 Months Family History Medical [...] Sign Reading Time Taken Comments Blood Pressure 132/75 01/14/2025 10:46 AM CDT Pulse 71 01/14/2025 10:46 AM CDT Temperature 36.1 C (96.9 F) 01/14/2025 10:46 AM CDT Respiratory Rate 15 01/14/2025 10:46 AM CDT Oxygen Saturation 97% 01/14/2025 10:46 AM CDT Inhaled Oxygen Concentration - - Weight 70.1 kg (154 lb 9.6 oz) 01/14/2025 10:46 AM CDT Height 162.6 cm (5' 4) 11/30/2021 11:26 AM ENGAGEMENT EXECUTIVE Body Mass Index 26.54 11/30/2021 11:26 AM ENGAGEMENT EXECUTIVE Plan of Treatment Upcoming Encounters Date Type Department Care Team (Late st Contact Info) Description 07/16/2025 11:45 AM CDT Office Visit [facility] Oncology and Hematology - [place]esh [address] [facility] [address] [place] [address] Eber Hooper MD [address] [facility] [address] [place] [address] Health Maintenance Due Date Last Done Comments DTAP/TDAP/TD VACCINES (1 - Tdap) 1963 PNEUMOCOCCAL VACCINE 50+ YEA RS (1 of 1 - PCV) 1994 ZOSTER VACCINE (1 of 2) 1994 RSV VACCINE (60+ or ) (1 - 1-dose 75+ series) 2019 Medicare Advantage ([place]) Prev entative Visit/Annual Wellness Visit 10/17/2024 INFLUENZA VACCINE (#1) 2025 OSTEOPOROSIS SCREENING 01/28/2027 2, 09/29/2019, 09/29/2019 Procedures Procedure Name Priority [...] Most Recently Relevant to Health Maintenance Insurance Care Teams Power Plant Operators Supervisor Relationship Specialty Start Date End Date Richard Daniels DO [address] [facility] [address] [place] [address] PCP - General Internal Medicine 01/14/25
--- OUTSIDE RECORDS SUMMARY | 2025-04-26 09:15 | XMS_ITS | Encounter Summary ---
Author Organization [facility] Address [address] [place] [address] Care Team Providers Care Roof Shingler Name Role Phone Richard Daniels DO Primary Care Provider [phone] Encounter Details Date Type Department Care Team (Late st Contact Info) Description 04/03/2019 Chart Note [facility] Radiation Therapy [address] [place] [address] [place] [address] [place] [address] Social History Tobacco Use Types [...] Description 07/16/2025 11:45 AM CDT Office Visit [facility] Oncology and Hematology - Mukesh [address] [facility] [address] [place] [address] Eber Hooper MD [address] [facility] [address] [place] [address] documented as of this encounter Visit Diagnoses Not on filedocumented in this encounter Care Teams Roof Shingler Relationship Specialty Start Date End Date Richard Daniels DO [address] [facility] [address] [facility] [address] [place] [address] PCP - General Internal Medicine 01/14/25 documented as of this encounter
[2025-04-26 12:26] LABS: Alanine Aminotransferase 24 U/L (6-35); Albumin Level 4.5 g/dL (3.5-5.1); Alkaline Phosphatase 74 U/L (38-126); Anion Gap 7 mmol/L (4-12); Aspartate Amino Transferase 69 U/L (14-36); Bilirubin,Total 0.7 mg/dL (0.2-1.3); Blood Urea Nitrogen 19 mg/dL (7-17); Calcium 10.0 mg/dL (8.4-10.2); Carbon Dioxide 28 mmol/L (22-30); Chloride 103 mmol/L (98-107); Cholesterol 178 mg/dL (0-200); Estimated Glomerular Filt Rate 46; Glucose 96 mg/dL (65-110); HDL Direct 77 mg/dL; Potassium 4.3 mmol/L (3.4-5.0); Sodium 138 mmol/L (137-145); Total Protein 8.1 g/dL (6.3-8.2); Triglycerides 116 mg/dL (<150)
== END 2025-04-26 09:13 | disposition home or self-care (01) ==
LOC: ANHLAB 09:13
PROVIDERS: PCP Internal Medicine; Visit Provider Nurse Practitioner
DX: E78.5 Hyperlipidemia, unspecified (principal)
CPT/HCPCS: 36415; 80053; 80061

== ENCOUNTER 2025-07-08 07:51 | Outpatient (CLI) | payer MEDICARE, SELFPAY ==
--- NOTE | ~2025-07-08 | MM_ITS ---
EXAMINATION: screening [facility] BI w [place] INDICATION: Asymptomatic, referred for screening mammogram. History of breast cancer treated with bilateral partial mastectomy. COMPARISON: 07/05/2024 through 08/13/2014 TECHNIQUE: Digital Breast Tomosynthesis CC, MLO views were obtained of Both breasts with computer-aided detection to assist in interpretation of the study. FINDINGS: The breasts are heterogeneously dense, which may obscure small masses. Posttreatment changes in Both breasts are unchanged. No new focal dominant mass, architectural distortion, or suspicious microcalcifications are identified. There are no features to suggest malignancy. IMPRESSION: Stable benign mammogram. No evidence of malignancy in either breast. BI-RADS 2, BENIGN Reviewed, dictated and finalized at location B. IMPRESSION: Stable benign mammogram. No evidence of malignancy in either breast . BI-RADS 2, BENIGN
--- OUTSIDE RECORDS SUMMARY | 2025-07-08 08:18 | XMS_ITS | Clinical Summary ---
Author Organization [facility] Address [address] [place] [address] Care Team Providers Care Tile Setter Name Role Phone Frances Richard Sorensen DO Primary Care Provider [phone] Allergies Active Allergy Reactions Criticality Noted Date [...] Encounters Date Type Department Care Team Description 07/02/2025 External Device Data STL ABSTRACTION Provider, Abstract 06/04/2025 External Device Data STL ABSTRACTION Provider, Abstract 05/21/2025 External Device Data STL ABSTRACTION Provider, Abstract 05/01/2025 External Device Data STL ABSTRACTION Provider, Abstract 04/30/2025 External Device Data STL ABSTRACTION Provider, Abstract 04/09/2025 External Device Data STL ABSTRACTION Provider, [...] 162.6 cm (5' 4) 11/30/2021 11:26 AM CLOTH SHADER Body Mass Index 26.54 11/30/2021 11:26 AM CLOTH SHADER Plan of Treatment Upcoming Encounters Date Type Department Care Team (Late st Contact Info) Description 07/16/2025 11:45 AM CDT Office Visit [facility] Oncology and Hematology - Mukesh [address] [facility] [address] [place] [address] Eber Hooper MD [address] [facility] [address] [place] [address] Health Maintenance Due Date Last Done Comments DTAP/TDAP/TD VACCINES (1 - Tdap) 1963 PNEUMOCOCCAL VACCINE 50+ YEA RS (1 of 1 - PCV) 1994 ZOSTER VACCINE (1 of 2) 1994 RSV VACCINE (60+ or ) (1 - 1-dose 75+ series) 2019 INFLUENZA VACCINE (#1) 2025 OSTEOPOROSIS SCREENING 01/28/2027 [...] Relevant to Health Maintenance Insurance Care Teams Tile Setter Relationship Specialty Start Date End Date Richard Daniels DO [address] [facility] [address] [facility] [address] [place] [address] PCP - General Internal Medicine 01/14/25
--- OUTSIDE RECORDS SUMMARY | 2025-07-08 08:18 | XMS_ITS | Clinical Summary ---
Author Organization [facility] Address [address] [facility] [place] [address] Care Team Providers Care Gel Coater Name Role Phone Tyree Ascencio DO Primary Care Provider Source Comments [facility],non-owned Affiliates and Associated Physician Practices is amultiple site organization consisting of ambulatory clinics and hospital sitesin [place], [place], [place] and [place]. This disclosure is being madepursuant to the Care Everywhere program and may not contain all information available regarding this patient. Last updated 18.[facility] Social History Tobacco Use Types Packs/Day Years [...] yrs (1 - 1-dose 75+ series) 2019 DEPRESSION SCREENING 10/17/2024 COVID-19 VACCINE ( - 2023-2 5 season) 2025 INFLUENZA VACCINE (#1) 2025 HEPATITIS B VACCINE [...] to complete this topic Insurance [place] [address] Care Teams Gel Coater Relationship Specialty Start Date End Date Tyree Ascencio DO [address] [facility] [address] [place] [address] PCP - General Internal Medicine 08/09/18
--- OUTSIDE RECORDS SUMMARY | 2025-07-08 08:18 | XMS_ITS | Encounter Summary ---
Author Organization [facility] Address [address] [place] [address] Care Team Providers Care Supervisor Research Shop Name Role Phone Richard Daniels DO Primary Care Provider [phone] Encounter Details Date Type Department Care Team (Late st Contact Info) Description 04/03/2019 Chart Note Yoni [facility] Radiation Therapy [address] [place] [address] [place] [address] [place] [address] Social History Tobacco Use Types [...] Description 07/16/2025 11:45 AM CDT Office Visit [facility] Oncology and Hematology - Mukesh [address] [facility] [address] [place] [address] Eber Hooper MD [address] [facility] [address] [place] [address] documented as of this encounter Visit Diagnoses Not on filedocumented in this encounter Care Teams Supervisor Research Shop Relationship Specialty Start Date End Date Richard Daniels DO [address] [facility] [address] [facility] [address] [place] [address] PCP - General Internal Medicine 01/14/25 documented as of this encounter
== END 2025-07-08 07:52 | disposition home or self-care (01) ==
LOC: ANHFOHIMG 07:53
PROVIDERS: PCP Internal Medicine; Visit Provider Internal Medicine Hematology & Oncology
DX: Z12.31 Encounter for screening mammogram for malignant neoplasm of breast (principal)
CPT/HCPCS: 36415; 77063; 77067; 80053; 85025; 86300

== ENCOUNTER 2025-07-22 14:54 | Outpatient (CLI) | payer MEDICARE, SELFPAY ==
--- NOTE | ~2025-07-22 | US_ITS ---
RIGHT BREAST ULTRASOUND INDICATION: 79-year old female; presents with clinician felt palpable right lower outer quadrant lump near the nipple. COMPARISON: 07/19/2018 TECHNIQUE: Targeted ultrasound of the inferior right breast near the nipple was completed. FINDINGS: There is a 3.1 x 3.7 x 0.9 cm hypervascular heterogeneous hypoechoic mass in the lower outer quadrant near the nipple in the RIGHT breast that correlates to the palpable finding. IMPRESSION: Highly suspicious hypervascular right breast mass near the nipple. Biopsy is recommended. RECOMMENDATION: Ultrasound-guided core needle biopsy of right breast mass. Diagnostic right mammogram which can be obtained at the time of the biopsy. BI-RADS 4, SUSPICIOUS Reviewed, dictated and finalized at location B. IMPRESSION: Highly suspicious hypervascular right breast mass near the nipple. Biopsy is re commended. RECOMMENDATION: Ultrasound-guided core needle biopsy of right breast mass. Diagnostic right mammogram which can be obtained at the time of the biopsy. BI-RADS 4, SUSPICIOUS
--- OUTSIDE RECORDS SUMMARY | 2025-07-22 15:38 | XMS_ITS | Clinical Summary ---
Author Organization [facility] Address [address] [place] [address] Care Team Providers Care Acetone Recovery Worker Name Role Phone Richard Daniels DO Primary Care Provider Allergies Active Allergy Reactions Criticality Noted Date Comments Chlorhexidine Rash Low 09/12/2018 Propofol Nausea and Vomiting Low 08/24/2018 Medications atorvastatin (LIPITOR) 20 mg tablet 11/19/2022 Active CALCIUM CARBONATE-VITAMI N D3 ORAL Take by mouth. Active anastrozole (ARIMIDEX) 1 mg tablet Take 1 Tablet (1 mg) by mouth daily. 90 Tablet 3 07/11/2024 Active escitalopram oxalate (LEXAPRO) 10 mg tablet Take 10 mg by mouth daily. 05/27/2025 Active Active Problems Problem Noted Date Diagnosed [...] Encounters Date Type Department Care Team Description 07/16/2025 11:45 AM CDT Office Visit [facility] Oncology and Hematology [facility] [address] [place] [address] Eber Hooper MD Carcinoma of upper-outer quadrant of right breast in female, estrogen receptor positive (CMS/HCC) (Primary Dx) 07/12/2025 Orders Only [facility] Oncology and Hematology - Mukesh [address] [place] [address] Eber Hooper MD 07/10/2025 Orders Only [facility] Oncology and Hematology - Mukesh [address] [place] [address] Eber Hooper MD 07/09/2025 Orders Only [facility] Oncology and Hematology - Mukesh [address] [place] [address] Eber Hooper MD 07/02/2025 External Device Data STL ABSTRACTION Provider, [...] Sign Reading Time Taken Comments Blood Pressure 150/91 07/16/2025 11:47 AM CDT Pulse 81 07/16/2025 11:46 AM CDT Temperature 36.5 C (97.7 F) 07/16/2025 11:46 AM CDT Respiratory Rate 15 07/16/2025 11:46 AM CDT Oxygen Saturation 96% 07/16/2025 11:46 AM CDT Inhaled Oxygen Concentration - - Weight 70.9 kg (156 lb 3.2 oz) 07/16/2025 11:46 AM CDT Height 162.6 cm (5' 4) 11/30/2021 11:26 AM FURNACE REPAIRER HELPER Body Mass Index 26.81 11/30/2021 11:26 AM FURNACE REPAIRER HELPER Plan of Treatment Upcoming Encounters Date Type Department Care Team (Late st Contact Info) Description 01/17/2026 8:45 AM CDT Office Visit [facility] Oncology and Hematology - [place] [address] [facility] [address] [place] [address] Eber Hooper MD [address] [facility] [address] [place] [address] Health Maintenance Due Date Last Done Comments DTAP/TDAP/TD VACCINES (1 - Tdap) 1964 PNEUMOCOCCAL VACCINE 50+ YEA RS (1 of 1 - PCV) 1994 ZOSTER VACCINE (1 of 2) 1994 RSV VACCINE (60+ or ) (1 - 1-dose 75+ series) 2019 INFLUENZA VACCINE (#1) 2025 OSTEOPOROSIS SCREENING 01/28/2027 2, 09/29/2019, 09/29/2019 Procedures Procedure Name Priority Date/Time Associated Diagnosis Comments CHG CA 15 3 Routine 07/08/2025 2:30 PM CDT MAMMO SCREENING BILAT Routine 07/08/2025 12:27 PM CDT COMPREHENSIVE METABOLIC PANEL Routine 07/08/2025 9:47 AM CDT XR DEXA BONE DENSITY AXIAL 1 OR MORE SITES Routine 09/29/2019 Osteoporosis, unspecified osteoporosis type, unspecified pathological fracture presence from Last 3 Months or Most Recently Relevant to Health Maintenance Results * CHG CA 15 3 (07/08/2025 2:30 PM CDT) us Eber Hooper MD CHG - LABORATORY Final Result * MAMMO SCREENING BILAT (07/08/2025 12:27 PM CDT) Anatomical Region Laterality Modality Breast Bilateral Mammography us Eber Hooper MD MAMMO ORDERABLES Final Result * COMPREHENSIVE METABOLIC PANEL (07/08/2025 9:47 AM CDT) Blood us Eber Hooper MD CHEMISTRY ORDERABLES Final Resu lt * XR DEXA BONE DENSITY AXIAL 1 OR MORE SITES (09/29/2019) Anatomical Region Laterality Modality Other us Eber Hooper MD DIAGNOSTIC IMAGING ORDERABLES F inal Result from Last 3 Months or Most Recently Relevant to Health Maintenance Insurance Care Teams Acetone Recovery Worker Relationship Specialty Start Date End Date Richard Daniels DO [address] [facility] [address] [place] [address] PCP - General Internal Medicine 01/14/25
--- OUTSIDE RECORDS SUMMARY | 2025-07-22 15:39 | XMS_ITS | Encounter Summary ---
Author Organization [facility] Address [address] [place] [address] Care Team Providers Care Lime Hide Inspector Name Role Phone Richard Daniels DO Primary Care Provider [phone] Encounter Details Date Type Department Care Team (Late st Contact Info) Description 04/03/2019 Chart Note Yoni Hooper [facility] Radiation Therapy [address] [place] [address] [place] [address] [place] [address] Social History Tobacco Use Types [...] Description 01/17/2026 8:45 AM CDT Office Visit [facility] Oncology and Hematology - Mukesh [address] [facility] [address] [place] [address] Eber Hooper MD [address] [facility] [address] [place] [address] documented as of this encounter Visit Diagnoses Not on filedocumented in this encounter Care Teams Lime Hide Inspector Relationship Specialty Start Date End Date Richard Daniels DO [address] [facility] [address] [facility] [address] [place] [address] PCP - General Internal Medicine 01/14/25 documented as of this encounter
--- OUTSIDE RECORDS SUMMARY | 2025-07-22 15:39 | XMS_ITS | Clinical Summary ---
Author Organization [facility] Address [address] [facility] [place] [address] Care Team Providers Care Talking Books Library Clerk Name Role Phone Tyree Ascencio DO Primary Care Provider [phone] Source Comments [facility],non-owned Affiliates and Associated Physician Practices is amultiple site organization consisting of ambulatory clinics and hospital sitesin [place], [place], [place] and [place]. This disclosure is being madepursuant to the Care Everywhere program and may not contain all information available regarding this patient. Last updated 18.[facility] Social History Tobacco Use Types Packs/Day Years [...] to complete this topic Insurance MEDICARE MEDICARE Care Teams Talking Books Library Clerk Relationship Specialty Start Date End Date Tyree Ascencio DO [address] [facility] [address] [place] [address] PCP - General Internal Medicine 08/09/18
== END 2025-07-22 14:55 | disposition home or self-care (01) ==
PROVIDERS: PCP Internal Medicine; Visit Provider Surgery
DX: N63.0 Unspecified lump in unspecified breast (principal); Z85.3 Personal history of malignant neoplasm of breast
CPT/HCPCS: 76642

== ENCOUNTER 2025-07-24 08:15 | Outpatient (CLI) | payer MEDICARE, SELFPAY ==
--- NOTE | ~2025-07-24 | MMUS_ITS ---
PROCEDURE: US breast biopsy RT w image, MM post biopsy diagnostic RT CLINICAL HISTORY: 79-year-old female suspicious hypervascular right breast mass adjacent to the right nipple, presents for ultrasound-guided core needle biopsy procedure. COMPARISON: Mammogram 07/08/2025 Following informed consent including risks, benefits, and possible complications, the patient was brought to the ultrasound suite. A time-out procedure was performed. A preliminary ultrasound of the right breast was performed, redemonstrating the hypervascular hypoechoic heterogeneous hypoechoic mass within the skin adjacent to the right nipple. The patient was prepped and draped in the usual sterile fashion. 1% lidocaine was instilled into the subcutaneous tissues. 1% lidocaine without epinephrine was injected into the deep tissues just inferior to the lesion. Approximately 15cc lidocaine was administered. A small skin cam was made. Multiple core samples were obtained with a 14-gauge multi pass biopsy needle. A post biopsy metal marker was placed at the biopsy site. Postprocedural mammogram of the right breast in craniocaudal and mediolateral projections reveal the post biopsy metal marker in good position. The patient tolerated the procedure well and was without immediate postprocedural complications. IMPRESSION: Successful ultrasound guided biopsy of right breast mass adjacent to the right nipple. A post biopsy metal marker was placed at the biopsy site, which is seen on postprocedural mammogram. The patient tolerated the procedure well without immediate postprocedure complications. The patient was given postprocedural instructions and sent home in stable condition. Reviewed, dictated and finalized at location B. IMPRESSION: Successful ultrasound guided biopsy of right breast mass adjacent t o the right nipple. A post biopsy metal marker was placed at the biopsy site, w hich is seen on postprocedural mammogram. The patient tolerated the procedure well without immediate postprocedure compli cations. The patient was given postprocedural instructions and sent home in sta ble condition.
--- NOTE | 2025-07-24 09:35 | S_PTH ---
PATIENT: Lottie Frank LOC: [facility] U#:[id number] AGE/SX: 79/F ROOM: RE07/24/[address]: Ashely Marmolejo MD : [id number] BED: DIS: 07/24/2025 SPEC #: [id number] RECD: 07/24/25 10:38 STATUS: NED REJoseph #: [id number] ADALBERTO: 07/24/25 09:[address]: Ashely Marmolejo DEPT: [facility], [place] Surgical RECD BY: Libia Mathew ENTERED: 07/24/25 10:38 SP TYPE: Surgical OTHR DR: Richard Daniels DO Tissues: A - Breast Biopsy Procedures: Biswas Keratin Hematoxylin and Eosin Stain Gross and Microscopic Level 4 ER-60 NY-60 MIB-60 HER 2-60 Vimentin CD 34 CK 7
== END 2025-07-24 08:16 | disposition home or self-care (01) ==
LOC: ANHFOHIMG 08:15
PROVIDERS: PCP Internal Medicine; Visit Provider Surgery
DX: C50.511 Malignant neoplasm of lower-outer quadrant of right female breast (principal); N63.41 Unspecified lump in right breast, subareolar; N63.0 Unspecified lump in unspecified breast; R85.3 Abnormal level of substances chiefly nonmedicinal as to source in specimens from digestive organs and abdominal cavity
CPT/HCPCS: 19083; 77065; 88305; 88342; 88360; A4648